=== PATIENT | female | born 1945 | race African-American/Black ===

== ENCOUNTER 2016-08-01 10:19 | Observation (INO) | payer BC ==
[2016-08-01] VITALS (8 sets, daily range): BP systolic 130–197; BP diastolic 65–84; PULSE 84–98; RESP 16–20; TEMP 97.4–98.8; O2SAT 94–100
[~2016-08-01 10:19] MED LIST: ADVA500A INH; ALBUAER3 INH; ALPR.25 PO; AMLO5TAB2 PO; ERGO2000 PO; GLIP-158 PO; HYDR-3288 PO; OLME1TAB7 PO; OMEP20TA PO; URSO300C2 PO; WALKER WHEELS/F1 MIS; WHEEMIS3; XARE10TA PO; XIFA550T4 PO
[2016-08-01 11:14] LABS: AUTOMATED NEUTROPHIL # 9.2 TH/MM3 (1.8-7.7); BASOPHIL % 0.2 % (0.0-2.0); EOSINOPHIL # 0.2 TH/MM3 (0-0.4); EOSINOPHIL % 1.5 % (0.0-4.0); HEMATOCRIT 27.5 % (35.0-46.0); LYMPH % 10.1 % (9.0-44.0); LYMPHOCYTE # 1.2 TH/MM3 (1.0-4.8); MEAN CELL VOLUME 78.6 FL (80.0-100.0); MEAN CORPUSCULAR HEMOGLOBIN 24.3 PG (27.0-34.0); MEAN CORPUSCULAR HGB CONC 30.9 % (32.0-36.0); NEUT % 78.2 % (16.0-70.0); PLATELET COUNT 110 TH/MM3 (150-450); RED CELL DISTRIBUTION WIDTH 19.7 % (11.6-17.2); WHITE BLOOD COUNT 11.8 TH/MM3 (4.0-11.0)
[2016-08-01 11:25] LABS: HEMO FLAGS AUTO DIFF
[2016-08-01 11:40] LABS: BICARBONATE 24.4 MEQ/L (21.0-32.0); POTASSIUM 4.2 MEQ/L (3.5-5.1)
--- NOTE | 2016-08-01 11:48 | RADRPT ---
EXAM DATE/TIME: 08/01/2016 11:34 [facility] COMPARISON: CHEST PA & LAT, July 15, 2014, 14:28. INDICATIONS : Short of breath. MEDICAL HISTORY : Hypertension. Chronic obstructive pulmonary disease. Diabetes. Biliary cirrhosis. Kidney diseas e. SURGICAL HISTORY : Port placement. ENCOUNTER: Initial ACUITY: 1 day PAIN SCORE: Non-responsive. LOCATION: Bilateral chest FINDINGS: Frontal and lateral views of the chest demonstrate a normal-sized cardiac silhouette. Right chest wal l Mliieh-l-Tyvs is present with distal tip in the superior vena cava. Lungs are underinflated. The gi moshe degree of aeration no definite effusion, consolidation, or pneumothorax is visualized. The bones and soft tissues demonstrate no acute finding. CONCLUSION: Stable chest x-ray. No acute cardiopulmonary abnormality is identified. Garcia Owens MD on August 01, 2016 at 11:43 Board Certified Radiologist. This report was verified electronically.
[2016-08-01 12:02] LABS: CALCIUM-PROTEIN CORRECTED 15.3 MG/DL (8.5-10.1)
[2016-08-01 12:03] LABS: SCAN/DIFF AUTO DIFF CONFIRMED
[2016-08-01] MEDS ORDERED: SODIUM CHLOR 0.9% 1000 ML INJ 1,000 ML IV SCH ×2 (12:04→13:45)
--- NOTE | 2016-08-01 12:04 | PD ---
HPI Chief Complaint: General Weakness Time Seen by Provider: 11:58 Travel History International Travel<30 days: No Contact w/Intl Traveler<30days: No Traveled to known affect area: No History of Present Illness HPI 70-year-old female that presents to the ED for evaluation of altered mental status. Patient has a chronic history of lung cancer Metastasized to the liver and is currently living in a rehabilitation facility. Patient had a fracture to the left hip around Christmastime was seen here and had surgery on the left hip and her mentation was normal. After the patient was discharged from this hospital she was sent to rehabilitation facility to work on the hip and apparently per who was able to give me most of the information patient was having some mentation issues and probably got worse until the past couple days she's been more off and she barely responds to questioning but does respond to painful stimuli. On my examination patient is mostly nonverbal only numbness and moans but doesn't really give me any information. She is able to tell me some no and yes but it's hard to arouse her. She denies any chest pain or abdominal pain. She denies any back or neck pain. Per she has had no issues with bowel movements or urinary that he can think of. Per patient was due to have a CT of the head today for evaluation of this changes in mentation as per they contacted the cancer DrAnjali Sotelo and Dr. Tillman who recommended the patient gets a CAT scan of the head to evaluate for the antral mental status. Unfortunately patient was not able to wait this long as her mentation worsen. Per there was some questioning whether patient was having some breathing issues. The patient does have a port. Patient has not had any chemotherapy recently but has had radiation recently. PFSH Past Medical History Arthritis: Yes Asthma: No Autoimmune Disease: No Anxiety: Yes Depression: No Heart Rhythm Problems: No Cancer: Yes (LUNG CANCER WITH METASTASIS) Cardiovascular Problems: Yes High Cholesterol: No Chemotherapy: Yes Chest Pain: No Congestive Heart Failure: No COPD: Yes Cerebrovascular Accident: No Diabetes: Yes Endocrine: Yes GERD: Yes Glaucoma: No Genitourinary: Yes Hepatitis: No Hiatal Hernia: No Hypertension: Yes Immune Disorder: Yes (PRIMARY BILIARY SCLEROSIS) Kidney Stones: No Musculoskeletal: Yes Neurologic: No Psychiatric: Yes Reproductive: Yes (FIBROIDS, PARTIAL HYSTERECTOMY) Respiratory: Yes (LUNG CANCER) Immunizations Current: No Migraines: No Pneumonia: Yes Radiation Therapy: Yes Renal Failure: Yes (RIGHT RENAL FAILURE) Seizures: No Sickle Cell Disease: No Sleep Apnea: No Thyroid Disease: No Ulcer: Yes ?: Not Menopausal: Yes : 3 Para: 1 Miscarriage: 2 Past Surgical History Abdominal Surgery: Yes (UMBILICAL HERNIA REPAIR) AICD: No Arteriovenous Shunt: No Cardiac Surgery: No Ear Surgery: No Endocrine Surgery: No Eye Surgery: Yes (BILATERAL CATARACT REMOVAL) Genitourinary Surgery: No Gynecologic Surgery: Yes (PARTIAL HYSTERECTOMY) Hysterectomy: Yes (PARTIAL) Insulin Pump: No Joint Replacement: No Oral Surgery: No Pacemaker: No Thoracic Surgery: No Other Surgery: Yes Social History Alcohol Use: No Tobacco Use: No Substance Use: No Allergies-Medications (Allergen,Severity, Reaction): Coded Allergies: KYA Inhibitors (Unverified Allergy, Severe, TONGUE SWELLS, 08/01/16) Aspirin (Unverified Adverse Reaction, Severe, PATIENT HAS LIVER DISEASE, ) Reported Meds & Prescriptions Reported Meds & Active Scripts Active Xanax (Alprazolam) 0.25 Mg Tab 0.25 Mg PO Q8H PRN Reported Vitamin C (Ascorbic Acid) 500 Mg Tab 500 Mg PO BID Santyl Topical (Collagenase) 250 Unit/Gm Oint 1 Applic TOPICAL DAILY Apply to lt buttock every day shift after nss wash then cover w/4x4 dry dsg Percocet (Oxycodone-Acetaminophen) 10-325 mg Tab 1 Tab PO Q4H PRN Milk of Magnesia Liq (Magnesium Hydroxide) 400 Mg/5 Ml Susp 30 Ml PO HS PRN Dulcolax Supp (Bisacodyl) 10 Mg Supp 10 Mg MT DAILY PRN Dextrose 5%-NaCl 0.45% Inj (Dextrose-Sodium Chloride Inj) 5%-0.45% 1,000 Ml Bagp IV Q8HR Use 100ml/hr every shift Citroma Liq (Magnesium Citrate) 300 Ml Liq 300 Ml PO DAILY PRN Advair Diskus Inh (Fluticasone-Salmeterol Inh) 500-50 Mcg/Blist Aer 1 Puff INH BID Rinse mouth after use. Proair Hfa 8.5 GM Inh (Albuterol Sulfate) 90 Mcg/Act Aer 2 Puff INH Q4HR PRN 108 mcg/actuation Vitamin D2 (Ergocalciferol) 2,000 Unit Tab 2,000 Units PO DAILY Olmesartan-Hydrochlorothiazide 40-12.5 Mg Tab 1 Tab PO DAILY Glipizide XL (Glipizide) 2.5 Mg Alfred 2.5 Mg PO DAILY Take with breakfast or first main meal of the day Omeprazole 20 Mg Tab 20 Mg PO DAILY Ursodiol 300 Mg Cap 300 Mg PO BID Xifaxan (Rifaximin) 550 Mg Tab 550 Mg PO Q12HR Amlodipine (Amlodipine Besylate) 5 Mg Tab 5 Mg PO DAILY Review of Systems Except as stated in HPI: all other systems reviewed are Neg Physical Exam Narrative GENERAL: SKIN: Warm and dry. HEAD: Atraumatic. Normocephalic. EYES: Pupils equal and round. No scleral icterus. No injection or drainage. ENT: No nasal bleeding or discharge. Mucous membranes pink and moist. Tongue is midline. No uvula deviation. NECK: Trachea midline. No JVD. CARDIOVASCULAR: Regular rate and rhythm. no murmurs, S3, S4. RESPIRATORY: No accessory muscle use. Clear to auscultation. Breath sounds equal bilaterally. GASTROINTESTINAL: Abdomen soft, mass to the liver palpated, nondistended. Hepatic and splenic margins not palpable. MUSCULOSKELETAL: Extremities without clubbing, cyanosis, or edema. No obvious deformities. Full range of motion of the upper extremities but cannot move the lower extremities. NEUROLOGICAL: Awake and alert but not oriented. No obvious cranial nerve deficits. Motor grossly within normal limits. Five out of 5 muscle strength in the arms and legs. Normal speech. PSYCHIATRIC: Altered mood and affect; insight and judgment not present. Data Data Last Documented VS Vital Signs Date Time Temp Pulse Resp B/P Pulse Ox O2 Delivery O2 Flow Rate FiO2 08/01/16 11:44 14 98 Room Air 08/01/16 11:44 98 197/84 08/01/16 10:38 98.8 Orders Complete Blood Count With Diff (08/01/16 10:53) Basic Metabolic Panel (Bmp) (08/01/16 10:53) Chest, Pa & Lat (08/01/16 10:53) Blood Culture (08/01/16 10:53) Iv Access Insert/Monitor (08/01/16 10:53) Ecg Monitoring (08/01/16 10:53) Oxygen Administration (08/01/16 10:53) Oximetry (08/01/16 10:53) Electrocardiogram (08/01/16 10:53) Ammonia (08/01/16 11:39) Ct Brain W/O Iv Contrast(Rout) (08/01/16 11:39) Ckmb (Isoenzyme) Profile (08/01/16 11:39) Troponin I (08/01/16 11:39) Lactic Acid (08/01/16 11:39) Protein Corrected Calcium(Pcc) (08/01/16 10:17) Cath For Specimen (08/01/16 11:44) Sodium Chlor 0.9% 1000 Ml Inj (Ns 1000 M (08/01/16 12:04) Prothrombin Time / Inr (Pt) (08/01/16 12:29) Act Partial Throm Time (Ptt) (08/01/16 12:29) CKMB (08/01/16 12:00) CKMB% (08/01/16 12:00) Hepatic Functional Panel (08/01/16 12:39) Ct Abd/Pel W Iv Contrast(Rout) (08/01/16 ) Pamidronate Inj (Aredia Inj) (08/01/16 13:45) Sodium Chlor 0.9% 1000 Ml Inj (Ns 1000 M (08/01/16 13:45) Urinalysis - C+S If Indicated (08/01/16 13:44) Admit Order (Ed Use Only) (08/01/16 13:49) Consult Medical Oncology (08/01/16 ) Wound Culture And Gram Stain (08/01/16 13:51) Labs Laboratory Tests Test 08/01/16 08/01/16 08/01/16 08/01/16 10:17 11:55 12:00 12:40 White Blood Count 11.8 TH/MM3 Red Blood Count 3.50 MIL/MM3 Hemoglobin 8.5 GM/DL Hematocrit 27.5 % Mean Corpuscular Volume 78.6 FL Mean Corpuscular Hemoglobin 24.3 PG Mean Corpuscular Hemoglobin 30.9 % Concent Red Cell Distribution Width 19.7 % Platelet Count 110 TH/MM3 Mean Platelet Volume 8.1 FL Neutrophils (%) (Auto) 78.2 % Lymphocytes (%) (Auto) 10.1 % Monocytes (%) (Auto) 10.0 % Eosinophils (%) (Auto) 1.5 % Basophils (%) (Auto) 0.2 % Neutrophils # (Auto) 9.2 TH/MM3 Lymphocytes # (Auto) 1.2 TH/MM3 Monocytes # (Auto) 1.2 TH/MM3 Eosinophils # (Auto) 0.2 TH/MM3 Basophils # (Auto) 0.0 TH/MM3 CBC Comment AUTO DIFF Differential Comment AUTO DIFF CONFIRMED Sodium Level 132 MEQ/L Potassium Level 4.2 MEQ/L Chloride Level 101 MEQ/L Carbon Dioxide Level 24.4 MEQ/L Anion Gap 7 MEQ/L Blood Urea Nitrogen 11 MG/DL Creatinine 0.75 MG/DL Estimat Glomerular Filtration 93 ML/MIN Rate Random Glucose 66 MG/DL Calcium Level 14.9 MG/DL Protein Corrected Calcium 15.3 MG/DL Total Protein 6.8 GM/DL 7.0 GM/DL Lactic Acid Level 1.8 mmol/L Ammonia 35 MCMOL/L Total Bilirubin 0.7 MG/DL Direct Bilirubin 0.3 MG/DL Indirect Bilirubin 0.4 MG/DL Aspartate Amino Transf 53 U/L (AST/SGOT) Alanine Aminotransferase 17 U/L (ALT/SGPT) Alkaline Phosphatase 257 U/L Total Creatine Kinase 192 U/L Creatine Kinase MB LESS THAN 0.5 NG/ML Troponin I 0.02 NG/ML Albumin 1.9 GM/DL Prothrombin Time 13.9 SEC Prothromb Time International 1.2 RATIO Ratio Activated Partial 24.6 SEC Thromboplast Time MDM Medical Decision Making Medical Screen Exam Complete: Yes Emergency Medical Condition: Yes Medical Record Reviewed: Yes Interpretation(s) CBC & BMP Diagram 08/01/16 10:17 Last Impressions Chest X-Ray 08/01/16 1053 Signed Impressions: Service Date/Time: July 11:34 - CONCLUSION: Stable chest x-ray. No acute cardiopulmonary abnormality is identified. Garcia Owens MD EKG shows sinus rhythm with no sign of acute ischemia or arrhythmia read by me and attending. Troponin and CK-MB negative. Last Impressions Head CT 08/01/16 1139 Signed Impressions: Service Date/Time: July 12:12 - CONCLUSION: No acute intracranial abnormality is identified. Chronic changes are present including cerebral atrophy and periventricular white matter low attenuation characteristic of chronic microvascular ischemia. Garcia Owens MD Chest X-Ray 08/01/16 1053 Signed Impressions: Service Date/Time: July 11:34 - CONCLUSION: Stable chest x-ray. No acute cardiopulmonary abnormality is identified. Garcia Owens MD LFTs slightly elevated, amonia slightly high. troponin negative Differential Diagnosis Altered mental status versus CVA versus metastasis versus electrolyte abnormality versus UTI versus sepsis versus normal exam Narrative Course 70-year-old female that presents to the ED for evaluation of altered mental status. Patient was properly examined and was found to have signs and symptoms consistent what appears to be altered mental status. Labs and imaging were initially ordered. Labs and imaging shows severe hyperglycemia with corrected calcium of 15. Very likely the cause of the upper mental status as per or records from the labs that have been performed in this facility is been creeping up since been discharged starting at 12 and then 2 today which is 15. Concerning for metastases to the bone causing this. I was also informed by ED nurse who changed the patient to do a urinary The patient does have what appears to be 2 decubitus ulcers to both buttocks as part about stage III. I do not have any documentation of his been found before so this is likely new. Patient still altered. Patient was given IV fluids. Case was discussed in my attending Dr. Montoya who was male well fall findings and agrees with plan. Patient will be admitted to the hospital for severe hypercalcemia with altered mental status. Case was discussed with Dr. Tillman the patient's oncologist who recommends starting patient on Aredia 90 mg as well as IV fluids. Case was discussed with nurse practitioner for Dr. Morgan who agrees to admission and was made aware of Dr. Tillman's recommendation. Procedures EKG Prior to Arrival: No Sepsis Criteria SIRS Criteria (2 or more): Heart rate over 90 Diagnosis Primary Impression: Altered mental status Qualified Code: R41.82 - Altered mental status, unspecified altered mental status type Additional Impressions: Hypercalcemia Leukocytosis Qualified Code: D72.829 - Leukocytosis, unspecified type Decubitus ulcer Qualified Code: L89.303 - Decubitus ulcer of buttock, stage 3, unspecified laterality Admitting Information Admitting Physician Requests: Admit Jai Avilez Aug 01, 2016 12:04
[2016-08-01 12:34] LABS: CREATINE KINASE 192 U/L (26-192)
[2016-08-01 12:47] LABS: CKMB LESS THAN 0.5 NG/ML (0.5-3.6)
[2016-08-01] MEDS ORDERED: PERC10TA27 PO (12:48)
[2016-08-01] MEDS ORDERED: MULT-135 PO (12:48)
[2016-08-01] MEDS ORDERED: COLL30T TOPICAL (12:48)
[2016-08-01] MEDS ORDERED: VITA500T PO (12:48)
[2016-08-01] MEDS ORDERED: CITRSOL4 PO (12:48)
[2016-08-01] MEDS ORDERED: MILKSUS PO (12:48)
[2016-08-01] MEDS ORDERED: DULC10SU3 PR (12:48)
[2016-08-01] MEDS ORDERED: [UNRECOGNIZED DRUG - CODE] IV (12:48)
--- NOTE | 2016-08-01 12:50 | RADRPT ---
EXAM DATE/TIME: 08/01/2016 12:12 [facility] COMPARISON: No previous studies available for comparison. INDICATIONS : Altered mental status today RADIATION DOSE: 34.04 CTDIvol (mGy) MEDICAL HISTORY : Cardiovascular disease. Hypertension. Carcinoma, lung. COPD SURGICAL HISTORY : Hysterectomy. Hernia repair, cataract ENCOUNTER: Initial ACUITY: 1 day PAIN SCALE: 0/10 LOCATION: cranial TECHNIQUE: Multiple contiguous axial images were obtained of the head. Using automated exposure control and adj ustment of the mA and/or kV according to patient size, radiation dose was kept as low as reasonably a chievable to obtain optimal diagnostic quality images. FINDINGS: CEREBRUM: There is mild cerebral atrophy. Periventricular white matter low-attenuation is present. No evidence of midline shift, mass lesion, hemorrhage or acute infarction. No extra-axial fluid collections are seen. POSTERIOR FOSSA: The cerebellum and brainstem are intact. The 4th ventricle is midline. The cerebellopontine angle i s unremarkable. EXTRACRANIAL: There is mild mucoperiosteal thickening within the right sphenoid sinus. Remaining sinuses are clear. SKULL: The calvaria is intact. No evidence of skull fracture. CONCLUSION: No acute intracranial abnormality is identified. Chronic changes are present including cerebral atrop hy and periventricular white matter low attenuation characteristic of chronic microvascular ischemia. Garcia Owens MD on August 01, 2016 at 12:46 Board Certified Radiologist. This report was verified electronically.
[2016-08-01 13:19] LABS: APTT (PATIENT) 24.6 SEC (24.3-30.1); INTERNATIONAL NORMALIZED RATIO 1.2 RATIO; PROTHROMBIN TIME - PATIENT 13.9 SEC (9.8-11.6)
[2016-08-01 13:25] LABS: INDIRECT BILIRUBIN 0.4 MG/DL (0.0-0.8); TOTAL BILIRUBIN ADULT 0.7 MG/DL (0.2-1.0)
[2016-08-01] MEDS ORDERED: PAMIDRONATE INJ 90 MG in SODIUM CHLOR 0.9% 1000 ML INJ 1,000 ML IV ONE (13:45)
[2016-08-01] MEDS ORDERED: IOHEXOL 350 MG/ML 10 ML VIAL (for RAD DIAG) IV ONE (13:51)
[2016-08-01] MEDS ORDERED: SODIUM CHLORIDE 0.9% FLUSH 5 ML FLUSH FLUSH PRN (14:00)
[2016-08-01] MEDS ORDERED: MAGNESIUM HYDROXIDE SUSP 30 ML CUP PO PRN (14:00)
[2016-08-01] MEDS ORDERED: ACETAMINOPHEN 325 MG TAB PO PRN (14:00)
[2016-08-01] MEDS ORDERED: BISACODYL 10 MG SUPP PR PRN (14:00)
[2016-08-01] MEDS ORDERED: ONDANSETRON HCL 4 MG/2 ML VIAL IVP PRN (14:00)
[2016-08-01] MEDS ORDERED: NALOXONE HCL 0.4 MG/ML AMP IV PRN (14:00)
--- NOTE | 2016-08-01 14:19 | RADRPT ---
EXAM DATE/TIME: 08/01/2016 13:50 [facility] COMPARISON: CT SIMULATION, June 03, 2016, 13:25. CT NEEDLE BIOPSY LIVER, May, 12:03. INDICATIONS : Decubitus ulcer to buttox; evaluate for abscess. IV CONTRAST: 90 cc Omnipaque 350 (iohexol) IV ORAL CONTRAST: No oral contrast ingested. RADIATION DOSE: 13.66 CTDIvol (mGy) MEDICAL HISTORY : Hypertension. Chronic obstructive pulmonary disease. Ulcers.Hernia; Uterine fib roids; GERD; Renal failure; Diabetes; Primary biliary sclerosis; Lung cancer with metastasis to liver ; left hip fracture. SURGICAL HISTORY : Hysterectomy. Hernia repair; Left hip surgery. ENCOUNTER: Initial ACUITY: 4 - 6 days PAIN SCALE: 6/10 LOCATION: Abdomen/pelvis TECHNIQUE: Volumetric scanning of the abdomen and pelvis was performed. Using automated exposure control and adjustment of the mA and/or kV according to patient size, radiation dose was kept as low as reasonably achievable to obtain optimal diagnostic quality images. FINDINGS: LOWER LUNGS: The visualized lower lungs are clear. LIVER: The liver is greatly enlarged with multiple large heterogeneously enhancing masses which a ppear increased in size as compared to the prior exam. These have completely infiltrated the left lat eral segment and the largest mass identified within the left medial segment measures 10.0 x 12.5 x 7. 5 cm in size. No evidence of biliary obstruction. The gallbladder is unremarkable. SPLEEN normal. PANCREAS: Within normal limits. KIDNEYS: Stable evidence of chronic obstruction of the right kidney with thinning of the cortex, greatly distended renal calyces and dilation of the ureter to the distal one third of the ureter. No obstructing lesion is visualized. The left kidney is unremarkable. ADRENAL GLANDS: The adrenal glands are mildly enlarged concerning for metastatic lesions. VASCULAR: There is no aortic aneurysm. BOWEL/MESENTERY: The stomach, small bowel, and colon demonstrate no acute abnormality. There is a small amount of free fluid identified within the mesentery. ABDOMINAL WALL: Within normal limits. RETROPERITONEUM: There is no lymphadenopathy. BLADDER: No wall thickening or mass. REPRODUCTIVE: Status post prior hysterectomy. INGUINAL: There is no lymphadenopathy or hernia. MUSCULOSKELETAL: No evidence of lytic or blastic lesion. Left femoral surgical hardware noted. The soft tissues of the buttocks demonstrate an area of discontinuity overlying the coccyx with adjac ent stranding of the fatty tissues without evidence of abscess. CONCLUSION: 1. No evidence of abscess. 2. Interval enlargement of the large metastatic lesions within the liver. Bella Cerna MD on August 01, 2016 at 14:08 Board Certified Radiologist. This report was verified electronically.
[2016-08-01 14:20] LABS: BLOOD, URINE NEG (NEG); GLUCOSE,URINE NEG (NEG); HYALINE CAST, URINE 3 /lpf (RARE); KETONE, URINE NEG (NEG); MUCUS URINE FEW /lpf (OCC); NITRITE,URINE NEG (NEG); PH, URINE 5.5 (5.0-8.5); URINE COLOR YELLOW (YELLW/STRAW)
[2016-08-01 14:22] LABS: COMMENT (UR) CULT NOT INDICATED; CULTURE IF INDICATED CULT NOT INDICATED
[2016-08-01] MEDS: SODIUM CHLOR 0.9% 1000 ML INJ 1,000 ML IV SCH ×2 (14:26→22:00)
[2016-08-01] MEDS: ENOXAPARIN SODIUM 40 MG/0.4 ML SYRINGE SQ SCH (14:46)
[2016-08-01] MEDS: SODIUM CHLORIDE 0.9% FLUSH 5 ML FLUSH FLUSH SCH (20:10)
--- NOTE | 2016-08-01 22:42 | HHI.HP ---
History of Present Illness Primary Care Physician Asher Morgan, DO Admission Diagnosis altered mental status, hypercalcemia, decubitus ulcers Diagnoses: (1) Liver mass, left lobe (2) Biliary cirrhosis (3) CKD (chronic kidney disease) stage 3, GFR 30-59 ml/min (4) Non-small cell carcinoma of lung, stage 4 (5) Altered mental status (6) Decubitus ulcer Review of Systems Constitutional: COMPLAINS OF: Weight loss, Change in appetite Gastrointestinal: COMPLAINS OF: Abdominal pain Psychiatric: COMPLAINS OF: Anxiety, Confusion Past Family Social History Allergies: Coded Allergies: KYA Inhibitors (Unverified Allergy, Severe, TONGUE SWELLS, 08/01/16) Aspirin (Unverified Adverse Reaction, Severe, PATIENT HAS LIVER DISEASE, ) Past Medical History lug cancer with liver mets Reported Medications Current Medications Medications (Trade) Dose Ordered Sig/Bonita Route PRN Reason Start Time Stop Time Status Last Admin Dose Admin Pamidronate Disodium/Sodium Chloride (Aredia Inj/NS 1000 ml Inj) 1,000 ml @ 42 mls/hr ONCE ONCE IV 08/01/16 13:45 08/02/16 13:33 08/01/16 14:26 IV Flush (NS Flush) 2 ml UNSCH PRN FLUSH FLUSH AFTER USING IV ACCESS 08/01/16 14:00 IV Flush (NS Flush) 2 ml BID FLUSH 08/01/16 21:00 Acetaminophen (Tylenol) 650 mg Q4H PRN PO TEMP > 100.4 08/01/16 14:00 Ondansetron HCl (Zofran Inj) 4 mg Q6H PRN IVP NAUSEA OR VOMITING 08/01/16 14:00 Bisacodyl (Dulcolax Supp) 10 mg DAILY PRN IA CONSTIPATION 08/01/16 14:00 Magnesium Hydroxide (Milk Of Magnesia Liq) 30 ml Q12H PRN PO CONSTIPATION 08/01/16 14:00 Naloxone HCl 0.4 mg 0.4 mg UNSCH PRN IV SEE LABEL COMMENTS 08/01/16 14:00 Sodium Chloride (NS 1000 ml Inj) 1,000 ml @ 125 mls/hr Q8H IV 08/01/16 14:00 08/01/16 14:26 Enoxaparin Sodium (Lovenox Inj) 40 mg Q24H SQ 08/01/16 14:00 08/01/16 14:46 Active Ordered Medications Current Medications Medications (Trade) Dose Ordered Sig/Bonita Route PRN Reason Start Time Stop Time Status Last Admin Dose Admin Pamidronate Disodium/Sodium Chloride (Aredia Inj/NS 1000 ml Inj) 1,000 ml @ 42 mls/hr ONCE ONCE IV 08/01/16 13:45 08/02/16 13:33 08/01/16 14:26 IV Flush (NS Flush) 2 ml UNSCH PRN FLUSH FLUSH AFTER USING IV ACCESS 08/01/16 14:00 IV Flush (NS Flush) 2 ml BID FLUSH 08/01/16 21:00 Acetaminophen (Tylenol) 650 mg Q4H PRN PO TEMP > 100.4 08/01/16 14:00 Ondansetron HCl (Zofran Inj) 4 mg Q6H PRN IVP NAUSEA OR VOMITING 08/01/16 14:00 Bisacodyl (Dulcolax Supp) 10 mg DAILY PRN IA CONSTIPATION 08/01/16 14:00 Magnesium Hydroxide (Milk Of Co-Work Liq) 30 ml Q12H PRN PO CONSTIPATION 08/01/16 14:00 Naloxone HCl 0.4 mg 0.4 mg UNSCH PRN IV SEE LABEL COMMENTS 08/01/16 14:00 Sodium Chloride (NS 1000 ml Inj) 1,000 ml @ 125 mls/hr Q8H IV 08/01/16 14:00 08/01/16 14:26 Enoxaparin Sodium (Lovenox Inj) 40 mg Q24H SQ 08/01/16 14:00 08/01/16 14:46 Family History unknown Social History non smoker non drinker Physical Exam Vital Signs Vital Signs Date Time Temp Pulse Resp B/P Pulse Ox O2 Delivery O2 Flow Rate FiO2 08/01/16 19:07 87 18 152/79 97 Room Air 08/01/16 18:00 84 20 173/74 100 Room Air 08/01/16 16:00 92 16 175/75 100 Room Air 08/01/16 14:15 92 16 174/81 96 Nasal Cannula 2 08/01/16 11:44 14 98 Room Air 08/01/16 11:44 98 16 197/84 97 Room Air 08/01/16 11:08 20 98 Room Air 08/01/16 11:08 98 Room Air 08/01/16 10:38 98.8 97 16 130/67 99 Physical Exam GENERAL: This is a frail malnourished black female SKIN: No rashes, ecchymoses or lesions. Cool and dry. HEAD: Atraumatic. Normocephalic. No temporal or scalp tenderness. EYES: Pupils equal round and reactive. Extraocular motions intact. No scleral icterus. No injection or drainage. ENT: Nose without bleeding, purulent drainage or septal hematoma. Throat without erythema, tonsillar hypertrophy or exudate. Uvula midline. Airway patent. NECK: Trachea midline. No JVD or lymphadenopathy. Supple, nontender, no meningeal signs. CARDIOVASCULAR: Regular rate and rhythm without murmurs, gallops, or rubs. RESPIRATORY: Clear to auscultation. Breath sounds equal bilaterally. No wheezes , rales, or rhonchi. GASTROINTESTINAL: MUSCULOSKELETAL: Extremities without clubbing, cyanosis, or edema. No joint tenderness, effusion, or edema noted. No calf tenderness. Negative Homans sign bilaterally. NEUROLOGICAL: Awake and alert. Cranial nerves II through XII intact. Motor and sensory grossly within normal limits. Five out of 5 muscle strength in all muscle groups. Normal speech. Laboratory Laboratory Tests Test 08/01/16 08/01/16 08/01/16 08/01/16 10:17 11:55 12:00 12:35 White Blood Count 11.8 Red Blood Count 3.50 Hemoglobin 8.5 Hematocrit 27.5 Mean Corpuscular Volume 78.6 Mean Corpuscular Hemoglobin 24.3 Mean Corpuscular Hemoglobin 30.9 Concent Red Cell Distribution Width 19.7 Platelet Count 110 Mean Platelet Volume 8.1 Neutrophils (%) (Auto) 78.2 Lymphocytes (%) (Auto) 10.1 Monocytes (%) (Auto) 10.0 Eosinophils (%) (Auto) 1.5 Basophils (%) (Auto) 0.2 Neutrophils # (Auto) 9.2 Lymphocytes # (Auto) 1.2 Monocytes # (Auto) 1.2 Eosinophils # (Auto) 0.2 Basophils # (Auto) 0.0 CBC Comment AUTO DIFF Differential Comment AUTO DIFF CONFIRMED Sodium Level 132 Potassium Level 4.2 Chloride Level 101 Carbon Dioxide Level 24.4 Anion Gap 7 Blood Urea Nitrogen 11 Creatinine 0.75 Estimat Glomerular Filtration 93 Rate Random Glucose 66 Calcium Level 14.9 Protein Corrected Calcium 15.3 Total Protein 6.8 7.0 Lactic Acid Level 1.8 Ammonia 35 Total Bilirubin 0.7 Direct Bilirubin 0.3 Indirect Bilirubin 0.4 Aspartate Amino Transf 53 (AST/SGOT) Alanine Aminotransferase 17 (ALT/SGPT) Alkaline Phosphatase 257 Total Creatine Kinase 192 Creatine Kinase MB LESS THAN 0.5 Troponin I 0.02 Albumin 1.9 Urine Color YELLOW Urine Turbidity CLEAR Urine pH 5.5 Urine Specific [place] 1.009 Urine Protein TRACE Urine Glucose (UA) NEG Urine Ketones NEG Urine Occult Blood NEG Urine Nitrite NEG Urine Bilirubin NEG Urine Urobilinogen LESS THAN 2.0 Urine Leukocyte Esterase NEG Urine WBC 3 Urine Hyaline Casts 3 Urine Mucus FEW Microscopic Urinalysis Comment CULT NOT INDICATED Test 08/01/16 12:40 Prothrombin Time 13.9 Prothromb Time International 1.2 Ratio Activated Partial 24.6 Thromboplast Time Date/Time Procedure Status Source Growth 08/01/16 10:17 Aerobic Blood Culture Received Blood Other Pending 08/01/16 10:17 Anaerobic Blood Culture Received Blood Other Pending Result Diagram: 08/01/16 1017 08/01/16 1017 Imaging Last Impressions Head CT 08/01/16 1139 Signed Impressions: Service Date/Time: July 12:12 - CONCLUSION: No acute intracranial abnormality is identified. Chronic changes are present including cerebral atrophy and periventricular white matter low attenuation characteristic of chronic microvascular ischemia. Garcia Owens MD Chest X-Ray 08/01/16 1053 Signed Impressions: Service Date/Time: July 11:34 - CONCLUSION: Stable chest x-ray. No acute cardiopulmonary abnormality is identified. Garcia Owens MD Abdomen/Pelvis CT 08/01/16 0000 Signed Impressions: Service Date/Time: July 13:50 - CONCLUSION: 1. No evidence of abscess. 2. Interval enlargement of the large metastatic lesions within the liver. Bella Cerna MD Assessment and Plan Problem List: (1) Liver mass, left lobe Status: Chronic (2) Biliary cirrhosis Status: Chronic (3) liver mets from lung Status: Chronic (4) Non-small cell carcinoma of lung, stage 4 Status: Chronic (5) Closed left hip fracture Status: Chronic (6) Decubitus ulcer Status: Chronic (7) Altered mental status Status: Acute Plan: discussed with family at bedside suggest hospice consult shold oncology have little to offer ck calcium and pth (8) Leukocytosis Status: Acute Problem Qualifiers (1) Altered mental status: Qualified Code: R41.82 - Altered mental status, unspecified altered mental status type (2) Decubitus ulcer: Qualified Code: L89.303 - Decubitus ulcer of buttock, stage 3, unspecified laterality (3) Leukocytosis: Qualified Code: D72.829 - Leukocytosis, unspecified type Asher Morgan DO Aug 01, 2016 22:42
[2016-08-02] VITALS: BP 132/68; PULSE 84; RESP 20; TEMP 98; O2SAT 96
[2016-08-02 05:42] LABS: AUTOMATED NEUTROPHIL # 10.1 TH/MM3 (1.8-7.7); BASOPHIL % 0.2 % (0.0-2.0); EOSINOPHIL # 0.1 TH/MM3 (0-0.4); HEMATOCRIT 25.4 % (35.0-46.0); LYMPH % 7.1 % (9.0-44.0); LYMPHOCYTE # 0.9 TH/MM3 (1.0-4.8); MEAN CELL VOLUME 78.3 FL (80.0-100.0); MEAN CORPUSCULAR HEMOGLOBIN 24.8 PG (27.0-34.0); MEAN CORPUSCULAR HGB CONC 31.7 % (32.0-36.0); MONO % 9.3 % (0.0-8.0); NEUT % 82.4 % (16.0-70.0); PLATELET COUNT 103 TH/MM3 (150-450); RED BLOOD COUNT 3.24 MIL/MM3 (4.00-5.30); RED CELL DISTRIBUTION WIDTH 20.3 % (11.6-17.2); WHITE BLOOD COUNT 12.3 TH/MM3 (4.0-11.0)
[2016-08-02 05:43] LABS: HEMO FLAGS AUTO DIFF
[2016-08-02 05:57] LABS: BICARBONATE 21.3 MEQ/L (21.0-32.0); POTASSIUM 4.1 MEQ/L (3.5-5.1)
[2016-08-02] MEDS: SODIUM CHLOR 0.9% 1000 ML INJ 1,000 ML IV SCH ×3 (06:00→22:30)
[2016-08-02 06:20] LABS: CALCIUM-PROTEIN CORRECTED ND MG/DL (8.5-10.1)
[2016-08-02] MEDS: SODIUM CHLORIDE 0.9% FLUSH 5 ML FLUSH FLUSH SCH ×2 (07:07→19:25)
[2016-08-02 07:32] LABS: SCAN/DIFF AUTO DIFF CONFIRMED
[2016-08-02 07:34] LABS: OVALOCYTES 1+ (NORMAL)
[2016-08-02 07:36] LABS: BURR CELLS 1+ (NORMAL); PLATELET ESTIMATE SMEAR LOW (NORMAL); PLATELET MORPHOLOGY NORMAL (NORMAL)
[2016-08-02 08:12] VITALS: BP 134/70; PULSE 96; RESP 17; TEMP 96.3; O2SAT 99
--- NOTE | 2016-08-02 08:42 | MB ---
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 PATIENT PROFILE The patient is a 70-year black female. She has been twice. She has one daughter. She was born in [place]. She has lived in [place] since childhood. She is retired and worked for the [employer]. She has smoked a half pack to a pack of cigarettes per day starting at the age of 21 and stopping about 6 years ago. HISTORY OF PRESENT ILLNESS The patient is a 70-year-old female who has primary biliary cirrhosis diagnosed in 1997 when she had a biopsy of the liver at [facility]. She had developed an iron deficiency anemia and she was referred to me for evaluation. Subsequent to her evaluation she was found to have a lung mass with metastatic disease to the liver. She had a liver biopsy on May 30, 2015 and was found to have a poorly differentiated squamous cell carcinoma. She has received multiple chemotherapies. She has received checkpoint inhibitors. Approximately 6 weeks ago she was found to have progressive disease with a huge epigastric mass which was essentially tumor occupying the left side of the liver. She was referred for radiation therapy and to date has received all but one treatment primarily to the epigastric area. She has had a progressive downhill course with increasing weakness. She had a fall towards the endo of June, fractured the left femur and required a left femoral reaming and I believe placement of a jovani which was performed on 06/18/[address] Olivarez. She subsequently went to a rehabilitation center and continued outpatient radiation. During the course of these events she has become increasingly weak, confused and somnolent. She was sent to the emergency room today from the rehab center and found to have severe hypercalcemia. On 08/01/2016 calcium was 14.9, protein corrected calcium 15.3. Serum ammonia level was 35. Serum albumin 1.9. Hemoglobin 8.5, white count 11,000, platelets 110,000. Other studies included a head CT scan without IV contrast on 08/01/2016 showing cerebral atrophy with no evidence of metastatic disease. A CT scan of the abdomen and pelvis dated 08/01/2016 shows the liver is enlarged with multiple large enhancing masses which appear increased in size as compared to the prior exam. These have completely infiltrated the left lateral segment and the largest mass identified within the medial segment measures 10 x 12.5 x 7.5 cm. PAST SURGICAL HISTORY 1. Cataract surgery. 2. Tonsillectomy. 3. Umbilical hernia repair. 4. Right renal stent for stenosis. 5. Liver biopsy as described above revealing metastatic squamous cell cancer. 6. Abdominal hysterectomy. PAST MEDICAL HISTORY 1. Biliary cirrhosis. 2. Metastatic squamous cell cancer of the lung to the liver. ALLERGIES 1. ASPIRIN. 2. PENICILLIN. MEDICATIONS Current medications include: 1. IV fluids. 2. Pamidronate. REVIEW OF SYSTEMS A review of systems is not possible to obtain as the patient is obtunded. PHYSICAL EXAMINATION GENERAL: Physical examination reveals a woman who is dying. She has very little time remaining. She is not able to engage in any conversation. Her cheeks are gaunt exposing the bony structures. The abdomen is protuberant and a 10-12 cm mass can be visualized half-way across the room. HEAD: Normocephalic. Sclera do not appear icteric. No adenopathy. HEART: Regular rhythm. LUNGS: Decreased sounds at the bases. ABDOMEN: Distended. There is a huge epigastric mass and the tumor extends 7-8 cm below the right costal margin as well and is enlarged when compared to the previous exams in spite of the radiation. EXTREMITIES: +1 edema. MUSCULOSKELETAL: Muscle wasting. NEUROLOGIC: Confusion. 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 She presents with hypercalcemia. The reason for the hypercalcemia is the histology in that she has a squamous cell cancer and the fact that she has become essentially bedridden following her fall. She is dying and this is not due to the hypercalcemia. There are no more therapeutic options available to treat the lung cancer. PLAN I took her aside and spoke to him at length about the situation. I suggested no cardiopulmonary resuscitation, a hospice consultation, and no further radiation with the patient having only one treatment remaining. Mr. Bolaños has relied both on myself and Dr. Alivia Valdovinos who has been their primary care physician. I then called to Dr. Valdovinos by phone and put the phone on speaker. We had a conference call together and Dr. Valdovinos was supportive of my recommendations for comfort measures, Hospice care, and no cardiopulmonary resuscitation. I have written orders for the above. It will take approximately 72 hours to see a substantial fall in the calcium MD JOE Chin/SHANA /8:50 PM /8:27 AM PAVITHRA
--- NOTE | 2016-08-02 12:08 | PD.ONC.PN ---
Subjective Subjective Remarks Afebrile overnight. Patient resting in bed. She is awake, moaning, not making eye contact or engaging at all. Objective Data Date Time Temp Pulse Resp B/P Pulse Ox O2 Delivery O2 Flow Rate FiO2 08/02/16 08:12 96.3 96 17 134/70 99 08/02/16 00:00 98.0 84 20 132/68 96 08/01/16 20:00 97.4 89 18 143/65 94 08/01/16 19:07 87 18 152/79 97 Room Air 08/01/16 18:00 84 20 173/74 100 Room Air 08/01/16 16:00 92 16 175/75 100 Room Air 08/01/16 14:15 92 16 174/81 96 Nasal Cannula 2 08/02/16 08/02/16 08/02/16 07:00 15:00 23:00 Intake Total 1287 ml Balance 1287 ml Result Diagram: 08/02/16 0507 08/02/16 0507 Laboratory Results Laboratory Tests Test 08/01/16 08/01/16 08/01/16 08/02/16 12:00 12:35 12:40 05:07 Total Bilirubin 0.7 MG/DL Direct Bilirubin 0.3 MG/DL Indirect Bilirubin 0.4 MG/DL Aspartate Amino Transf 53 U/L (AST/SGOT) Alanine Aminotransferase 17 U/L (ALT/SGPT) Alkaline Phosphatase 257 U/L Total Creatine Kinase 192 U/L Creatine Kinase MB LESS THAN 0.5 NG/ML Troponin I 0.02 NG/ML Total Protein 7.0 GM/DL GM/DL Albumin 1.9 GM/DL Urine Color YELLOW Urine Turbidity CLEAR Urine pH 5.5 Urine Specific [place] 1.009 Urine Protein TRACE mg/dL Urine Glucose (UA) NEG mg/dL Urine Ketones NEG mg/dL Urine Occult Blood NEG Urine Nitrite NEG Urine Bilirubin NEG Urine Urobilinogen LESS THAN 2.0 MG/DL Urine Leukocyte Esterase NEG Urine WBC 3 /hpf Urine Hyaline Casts 3 /lpf Urine Mucus FEW /lpf Microscopic Urinalysis Comment CULT NOT INDICATED Prothrombin Time 13.9 SEC Prothromb Time International 1.2 RATIO Ratio Activated Partial 24.6 SEC Thromboplast Time White Blood Count 12.3 TH/MM3 Red Blood Count 3.24 MIL/MM3 Hemoglobin 8.0 GM/DL Hematocrit 25.4 % Mean Corpuscular Volume 78.3 FL Mean Corpuscular Hemoglobin 24.8 PG Mean Corpuscular Hemoglobin 31.7 % Concent Red Cell Distribution Width 20.3 % Platelet Count 103 TH/MM3 Mean Platelet Volume 7.1 FL Neutrophils (%) (Auto) 82.4 % Lymphocytes (%) (Auto) 7.1 % Monocytes (%) (Auto) 9.3 % Eosinophils (%) (Auto) 1.0 % Basophils (%) (Auto) 0.2 % Neutrophils # (Auto) 10.1 TH/MM3 Lymphocytes # (Auto) 0.9 TH/MM3 Monocytes # (Auto) 1.1 TH/MM3 Eosinophils # (Auto) 0.1 TH/MM3 Basophils # (Auto) 0.0 TH/MM3 CBC Comment AUTO DIFF Differential Comment AUTO DIFF CONFIRMED Platelet Estimate LOW Platelet Morphology Comment NORMAL Ovalocytes 1+ [place] Cells 1+ Sodium Level 135 MEQ/L Potassium Level 4.1 MEQ/L Chloride Level 106 MEQ/L Carbon Dioxide Level 21.3 MEQ/L Anion Gap 8 MEQ/L Blood Urea Nitrogen 13 MG/DL Creatinine 0.74 MG/DL Estimat Glomerular Filtration 94 ML/MIN Rate Random Glucose 58 MG/DL Calcium Level MG/DL Protein Corrected Calcium MG/DL Parathyroid Hormone (Intact) 12.8 PG/ML Culture Results Microbiology Date/Time Procedure Status Source Growth 08/01/16 10:00 Aerobic Blood Culture - Preliminary Resulted Blood Other NO GROWTH IN 1 DAY 08/01/16 10:00 Anaerobic Blood Culture - Preliminary Resulted Blood Other NO GROWTH IN 1 DAY 08/01/16 10:17 Aerobic Blood Culture - Preliminary Resulted Blood Other NO GROWTH IN 1 DAY 08/01/16 10:17 Anaerobic Blood Culture - Preliminary Resulted Blood Other NO GROWTH IN 1 DAY Administered Medications Medications (Trade) Dose Ordered Sig/Bonita Route PRN Reason Start Time Stop Time Status Last Admin Dose Admin Pamidronate Disodium 90 mg/ Sodium Chloride 1,000 ml @ 42 mls/hr ONCE ONCE IV 08/01/16 13:45 08/02/16 13:33 08/01/16 14:26 Sodium Chloride (NS 1000 ml Inj) 1,000 ml @ 125 mls/hr Q8H IV 08/01/16 14:00 08/02/16 06:00 Enoxaparin Sodium (Lovenox Inj) 40 mg Q24H SQ 08/01/16 14:00 08/01/16 14:46 Objective Remarks GENERAL: Chronically ill-appearing older female lying in bed. SKIN: Warm and dry. HEAD: Normocephalic. EYES: No injection or drainage. NECK: Supple, trachea midline. CARDIOVASCULAR: +S1/S2. Mo murmur. RESPIRATORY: Breath sounds diminished the bases. Breathing unlabored. GASTROINTESTINAL: Hepatomegaly. Approximately 11 cm hard mass in the left upper portion of the abdomen. EXTREMITIES: No edema. NEUROLOGICAL: Encephalopathic. Patient awake looking around the room without making eye contact. No meaningful movements. Assessment/Plan Assessment This is an unfortunate 70-year-old female with end-stage squamous cell cancer of the lung with metastases to the liver. She was hypercalcemic at 14.9 on admission. She received pamidronate but this will take up to 72 hours to take effect to lower her calcium level. Dr. Tillman had a long discussion with the patient's as well as her primary care provider last night. The decision was made to consult hospice. The patient was made a DNR and we are awaiting the hospice consult. Discussed with Dr. Tillman. Plan The exam, history, and the medical decision-making described in the above note were completed with the assistance of the mid-level provider. I reviewed and agree with the findings presented. I attest that I had a [id number] encounter with the patient on the same day, and personally performed and documented my assessment and findings in the medical record. patient continues to deteriorate and given extent of disease in the liver she will not get better. calcium will probably correct in next two days but this will not alter course of disease. I spoke with hospice nurse today. nothing else to do and comfort measures and support for family most important. Poonam Espino Aug 02, 2016 12:08 Jarrett Tillman MD Aug 02, 2016 21:11
[2016-08-02 12:26] VITALS: BP 130/68; PULSE 92; RESP 16; TEMP 97.1; O2SAT 96
[2016-08-02] MEDS: ENOXAPARIN SODIUM 40 MG/0.4 ML SYRINGE SQ SCH (14:39)
[2016-08-02 16:20] VITALS: BP 117/56; PULSE 101; RESP 16; TEMP 98.3; O2SAT 97
--- NOTE | 2016-08-02 16:55 | EKG ---
Date Performed: 08/01/2016 Time Performed: 11:39:12 PTAGE: 70 years EKG: Sinus rhythm NONSPECIFIC T-WAVE ABNORMALITY BORDERLINE ECG NO PREVIOUS TRACING DOCTOR: Ambrosio Morris Interpretating Date/Time 08/02/2016 16:54:47
[2016-08-02 20:00] VITALS: BP 140/80; PULSE 84; RESP 18; TEMP 97.4; O2SAT 93
[2016-08-03] VITALS: BP 131/74; PULSE 88; RESP 20; TEMP 97.6; O2SAT 96
[2016-08-03 05:36] LABS: AUTOMATED NEUTROPHIL # 15.8 TH/MM3 (1.8-7.7); BASOPHIL % 0.2 % (0.0-2.0); EOSINOPHIL # 0.1 TH/MM3 (0-0.4); EOSINOPHIL % 0.6 % (0.0-4.0); HEMATOCRIT 24.6 % (35.0-46.0); LYMPH % 8.1 % (9.0-44.0); LYMPHOCYTE # 1.6 TH/MM3 (1.0-4.8); MEAN CELL VOLUME 79.1 FL (80.0-100.0); MEAN CORPUSCULAR HEMOGLOBIN 24.6 PG (27.0-34.0); MEAN CORPUSCULAR HGB CONC 31.1 % (32.0-36.0); MONO % 12.4 % (0.0-8.0); NEUT % 78.7 % (16.0-70.0); PLATELET COUNT 119 TH/MM3 (150-450); RED CELL DISTRIBUTION WIDTH 20.5 % (11.6-17.2)
[2016-08-03 05:38] LABS: HEMO FLAGS AUTO DIFF
[2016-08-03 05:46] LABS: BICARBONATE 20.8 MEQ/L (21.0-32.0); POTASSIUM 4.1 MEQ/L (3.5-5.1)
[2016-08-03] MEDS: SODIUM CHLOR 0.9% 1000 ML INJ 1,000 ML IV SCH (06:00)
[2016-08-03] MEDS ORDERED: DEXTROSE 50% IN WATER 50 ML VIAL(D50) IV ONE (06:15)
[2016-08-03 06:31] LABS: NEUTROPHIL # MANUAL DIFF 14.2 TH/MM3 (1.8-7.7); POLYS (SEG NEUTROPHILS) 71 % (16-70); WBC DIFF SAMPLE 100
[2016-08-03 06:32] LABS: ACANTHOCYTES 1+ (NORMAL)
[2016-08-03 06:33] LABS: OVALOCYTES 1+ (NORMAL); PLATELET ESTIMATE SMEAR LOW (NORMAL); PLATELET MORPHOLOGY NORMAL (NORMAL); SCAN/DIFF FINAL DIFF MANUAL
--- NOTE | 2016-10-04 14:43 | HHI.DS ---
Discharge Summary Admission Date Aug 01, 2016 at 13:52 Discharge Date: Aug 02, 2016 Admitting Diagnosis altered mental status, hypercalcemia, decubitus ulcers end stage metatastic squamous cell cancer of lung (1) liver mets from lung Diagnosis: Principal (2) Non-small cell carcinoma of lung, stage 4 Diagnosis: Principal (3) Liver mass, left lobe Diagnosis: Principal (4) CKD (chronic kidney disease) stage 3, GFR 30-59 ml/min Diagnosis: Secondary (5) Altered mental status Diagnosis: Secondary (6) Biliary cirrhosis Diagnosis: Secondary (7) Hypercalcemia Diagnosis: Principal (8) Hypertension Diagnosis: Secondary (9) TERESA (iron deficiency anemia) Diagnosis: Secondary (10) COPD (chronic obstructive pulmonary disease) Diagnosis: Secondary Procedures none Brief History pt suffers from squamous cell lung cancer with mets to liver Significant Findings palpable mass abdomen calcium elevated confused not engaging altered mental status PE at Discharge pt is discharged in terminal condition to hospice care Hospital Course pt admitted with altered mental status hypercalcemia and lung cancer with mets to liver oncology dr Kaplan was consulted he felt that she was at end of life and comfort measures should be begun pt family consulted with her primary care and dr Kaplan and hospice was consulted her care was transferred to hospice I believe she was ultimately transferred to the hospice center after her care was transferred to hospice Pt Condition on Discharge: Deteriorating Discharge Disposition: Hospice/Med Facility Asher Morgan DO Oct 04, 2016 14:42
== END 2016-08-03 07:22 | disposition hospice, inpatient (51) ==
LOC: NEDAMB 10:19 → INTOOBSV 13:52 → NEDA 13:52 → N07A 20:20
PROVIDERS: ADMIT Family Medicine; ATTEND Family Medicine
DX: C78.7 Secondary malignant neoplasm of liver and intrahepatic bile duct (principal); C34.90 Malignant neoplasm of unspecified part of unspecified bronchus or lung; D72.829 Elevated white blood cell count, unspecified; S72.002A Fracture of unspecified part of neck of left femur, initial encounter for closed fracture; N18.3 Chronic kidney disease, stage 3 (moderate); K74.3 Primary biliary cirrhosis; K21.9 Gastro-esophageal reflux disease without esophagitis; I12.9 Hypertensive chronic kidney disease with stage 1 through stage 4 chronic kidney disease, or unspecified chronic kidney disease; R94.31 Abnormal electrocardiogram [ECG] [EKG]; E11.22 Type 2 diabetes mellitus with diabetic chronic kidney disease; E11.65 Type 2 diabetes mellitus with hyperglycemia; E83.52 Hypercalcemia; J44.9 Chronic obstructive pulmonary disease, unspecified; L89.303 Pressure ulcer of unspecified buttock, stage 3; Z66 Do not resuscitate; Z74.01 Bed confinement status
CPT/HCPCS: 70450; 71020; 74177; 80048; 80076; 81001; 82140; 82397; 82550; 82552; 82948; 83605; 83970; 84155; 84484; 85007; 85025; 85027; 85610; 85730; 87040; 92526; 92610; 93005; 96360; 99285; G0378; J1650; J2430; J7030; P9612; Q9967